=== PATIENT | male | born 1970 | race Caucasian/White ===

== ENCOUNTER 2017-05-31 18:51 | Emergency (ER) | payer OTHER ==
[~2017-05-31] VITALS: Ht 185.4 cm; Wt 128.5 kg
[2017-05-31] MEDS ORDERED: PREDNISONE20 MG PO (19:24)
[2017-05-31] MEDS ORDERED: VALACYCLOVIR1000 MG PO (19:24)
[2017-05-31 20:19] VITALS: BP 128/71
== END 2017-05-31 20:21 | disposition home or self-care (01) ==
LOC: EME 18:51
DX: G51.0 Bell's palsy (principal)
CPT/HCPCS: 70450; 99281; 99284; J7512